=== PATIENT | female | born 1940 | race Caucasian/White ===

== ENCOUNTER → 2024-12-08 09:07 | Outpatient (REF) | payer MEDICARE, SELFPAY ==
[2024-12-08 10:19] LABS: Hematocrit 34.7 % (37.0-47.0); Mean Corp Hgb Conc. 31.7 g/dL (33.0-37.0); Mean Corpuscular Hgb 27.1 pg (27.0-31.0); Mean Corpuscular Volume 85.5 fL (81.0-99.0); Mean Platelet Volume 10.6 fL (7.4-10.4); Platelet Count 225 10^3/uL (130-400); Red Blood Cell Count 4.06 10^6/uL (4.20-5.40)
[2024-12-08 10:34] LABS: Blood Urea Nitrogen 18 mg/dl (7-17); Calcium 8.8 mg/dl (8.4-10.2); Carbon Dioxide 26 mmol/L (22-30); Chloride 106 mmol/L (98-107); Glucose 134 mg/dl (70-99); HDL Cholesterol 40 mg/dl; LDL Cholesterol, Calculated 96 mg/dl; Potassium 4.1 mmol/L (3.5-5.1); Sodium 140 mmol/L (135-145); Total Cholesterol 152 mg/dl (50-199); Triglyceride 84 mg/dl (10-149); Very Low Density Lipoprotein 16 mg/dl (0-30); eGFR > 60.00
[2024-12-08 10:49] LABS: Vitamin D, 25-OH*** 19.2 ng/mL (30-80)
[2024-12-08 11:03] LABS: TSH 1.57 uIU/ml (0.47-4.68)
== END ==
LOC: OLABN 09:07
PROVIDERS: ATTENDING PHYSICIAN Student in an Organized Health Care Education/Training Program
DX: I10 Essential (primary) hypertension (principal); E55.9 Vitamin D deficiency, unspecified; E03.9 Hypothyroidism, unspecified
CPT/HCPCS: 36415; 80048; 80061; 82306; 84443; 85027

== ENCOUNTER → 2024-12-17 04:30 | Outpatient (REF) | payer MEDICARE, SELFPAY ==
[2024-12-17 12:32] LABS: Urine Albumin 1+ (Neg - Trace); Urine Bilirubin Negative (Negative); Urine Character Slightly Cloudy (Clear); Urine Color Yellow; Urine Glucose Negative (Negative); Urine Ketone Negative (Negative); Urine Leukocyte 3+ (Negative); Urine Nitrite Positive (Negative); Urine Occult Blood 4+ (Negative); Urine Specific Gravity 1.015 (<1.030); Urine Urobilinogen Negative (Neg - 1+)
[2024-12-17 13:56] LABS: Urine Squamous Cell >30 /LPF (Few)
[2024-12-17 13:57] LABS: Urine Amorphous Seen
[2024-12-17 13:59] LABS: Urine Bacteria Many (Negative)
[2024-12-17 14:00] LABS: Urine White Cell >100 /HPF (0-5)
== END ==
LOC: OLABN 04:30
PROVIDERS: ATTENDING PHYSICIAN Student in an Organized Health Care Education/Training Program
DX: R31.9 Hematuria, unspecified (principal)
CPT/HCPCS: 81003; 81015; 87077; 87086; 87186

== ENCOUNTER → 2025-01-24 06:20 | Outpatient (REF) | payer MEDICARE, SELFPAY ==
[2025-01-25 12:43] LABS: Urine Albumin 1+ (Neg - Trace); Urine Bilirubin Negative (Negative); Urine Character Clear (Clear); Urine Color Yellow; Urine Glucose Negative (Negative); Urine Ketone Negative (Negative); Urine Leukocyte 1+ (Negative); Urine Nitrite Negative (Negative); Urine Occult Blood 4+ (Negative); Urine Specific Gravity 1.015 (<1.030); Urine Urobilinogen Negative (Neg - 1+)
[2025-01-25 13:21] LABS: Urine Squamous Cell >30 /LPF (Few)
[2025-01-25 13:22] LABS: Urine Amorphous Seen
[2025-01-25 13:23] LABS: Urine White Cell 0-2 /HPF (0-5)
== END ==
LOC: OLABN 06:20
PROVIDERS: ATTENDING PHYSICIAN Student in an Organized Health Care Education/Training Program
DX: R82.998 Other abnormal findings in urine (principal)
CPT/HCPCS: 81003; 81015; 87086